=== PATIENT | female | born 1985 | race Caucasian/White ===

== ENCOUNTER 2017-07-09 19:16 | Emergency (ER) | payer MEDICARE, MEDICAID ==
[~2017-07-09] VITALS: Ht 165.1 cm; Wt 106.9 kg
[2017-07-09] MEDS ORDERED: ALBUTEROL/IPRATROPIUM 2.5MG/0.5MG, 3 ML NPPB ONE (20:00)
[2017-07-09] MEDS ORDERED: ALBUTEROL/IPRATROPIUM 2.5MG/0.5MG, 3 ML ONE (20:06)
[2017-07-09 21:51] VITALS: BP 131/80
== END 2017-07-09 21:58 | disposition home or self-care (01) ==
LOC: ED 21:52
DX: J45.40 Moderate persistent asthma, uncomplicated (principal)
CPT/HCPCS: 71046; 93005; 94640; 99284; J7512; J7620